=== PATIENT | female | born 1940 | race Caucasian/White ===

== ENCOUNTER 2020-02-05 14:44 | Emergency (ER) | payer MEDICARE, OTHER ==
[~2020-02-05] VITALS: Ht 175.3 cm; Wt 136.1 kg
[~2020-02-05 14:44] MED LIST: ASPIRIN81 MG PEG; BIOTIN300 MCG PO; CALCIUM 500+D1 EACH PO; LASIX20 MG PO; LEVAQUIN500 MG PO; MOBIC15 MG PO; MULTI-VITAMIN1 EACH PO; NIACIN500 M2 PO; PLETAL100 MG PO
[2020-02-05] MEDS ORDERED: ONDANSETRON HCL INJ 2MG/ML 2ML 2 MG/ML VIAL IV STA (15:13)
[2020-02-05] MEDS ORDERED: MORPHINE SULFATE 2 MG/ML SYR 1ML IV STA (15:13)
[2020-02-05] MEDS ORDERED: PANTOPRAZOLE 40 MG 10ML VIAL IV STA (15:13)
[2020-02-05] MEDS ORDERED: SODIUM CHLORIDE 0.9% 1000ML 1,000 ML IV STA (15:13)
[2020-02-05] MEDS ORDERED: MORPHINE SULFATE INJ 4 MG/ML INJ 1ML ONE (15:20)
[2020-02-05] MEDS ORDERED: SODIUM CHLORIDE 0.9% 1000ML 1,000 ML ONE (15:21)
[2020-02-05] MEDS ORDERED: ONDANSETRON HCL INJ 2MG/ML 2ML 2 MG/ML VIAL ONE (15:21)
[2020-02-05] MEDS ORDERED: HYDROMORPHONE 1MG/1ML INJ IV ONE (15:30)
[2020-02-05 15:35] LABS: BASOPHILS % 0.2 % (0.0-1.0); HEMATOCRIT 35.3 % (34.2-44.1); HEMOGLOBIN 11.7 g/dL (12.0-16.0); LYMPHOCYTES # (AUTO) 0.9 (1.0-3.2); LYMPHOCYTES % 8.3 % (18.0-39.1); MEAN CORPUSCULAR HEMOGLOBIN 28.5 pg (28-32); MEAN CORPUSCULAR HGB CONC 33.1 g/dL (31-35); MEAN CORPUSCULAR VOLUME 86.1 fL (81-99); MONOCYTES # (AUTO) 0.7 (0.2-0.8); MONOCYTES % 6.1 % (4.4-11.3); NEUTROPHILS # (AUTO) 9.7 (2.1-6.9); PLATELET COUNT 199 x10e3/uL (140-360); RED CELL DISTRIBUTION WIDTH 15.4 % (11.7-14.4)
[2020-02-05] MEDS ORDERED: HYDROMORPHONE 2MG/ML 2 MG/ML ML ONE (15:38)
[2020-02-05 15:46] LABS: INR 1.04; PROTHROMBIN TIME 14.1 seconds (11.9-14.5)
[2020-02-05 15:47] LABS: PARTIAL THROMBOPLASTIN TIME 42.9 seconds (23.8-35.5)
[2020-02-05 15:59] LABS: ALBUMIN 3.7 g/dL (3.5-5.0); ANION GAP 18.2 mmol/L (8-16); CALCIUM 9.3 mg/dL (8.4-10.2); CREATININE, SERUM 1.4 mg/dL (0.57-1.11); MAGNESIUM 1.9 MG/DL (1.3-2.1); POTASSIUM 4.2 mmol/L (3.5-5.1)
[2020-02-05] MEDS ORDERED: LORAZEPAM INJ 2 MG/ML VIAL IV ONE (16:00)
[2020-02-05] MEDS ORDERED: LORAZEPAM INJ 2 MG/ML VIAL ONE (16:04)
[2020-02-05 16:07] LABS: CREATINE KINASE MB 0.9 ng/mL (0-5.0)
[2020-02-05 16:18] LABS: BILIRUBIN,URINE SMALL (NEGATIVE); CLARITY,URINE SL CLOUDY (CLEAR); COLOR,URINE STRAW (YELLOW); KETONES,URINE NEGATIVE (NEGATIVE); LEUKOCYTE ESTERASE ,URINE NEGATIVE (NEGATIVE); NITRITE,URINE NEGATIVE (NEGATIVE); PROTEIN,URINE DIPSTICK NEGATIVE (NEGATIVE); URINE UROBILINOGEN 0.2 mg/dL (0.2 - 1)
--- NOTE | 2020-02-05 16:24 | Diagnostic Imaging Report ---
EXAMINATION: CHEST SINGLE (PORTABLE) INDICATION: Abdominal pain COMPARISON: None FINDINGS: LINES/TUBES:None LUNGS:The lungs are well-inflated. There is perihilar fullness and indistinctness of the pulmonary vasculature. No focal consolidation PLEURA:No pleural effusion or pneumothorax. MEDIASTINUM:The cardiomediastinal silhouette appears normal in size and shape. BONES/SOFT TISSUES:No acute osseous injury. ABDOMEN:No free air under the diaphragm. IMPRESSION: Mild pulmonary interstitial edema. Signed by: Jere Rush MD on 02/05/2020 4:20 PM
[2020-02-05 16:31] LABS: BACTERIA,URINE MODERATE /HPF; EPITHELIAL CELLS,URINE FEW /LPF
--- NOTE | 2020-02-05 16:54 | Diagnostic Imaging Report ---
EXAM: CT Abdomen and Pelvis WITHOUT intravenous contrast INDICATION: Left flank pain, suprapubic pain COMPARISON: None. TECHNIQUE: Abdomen and pelvis were scanned utilizing a multidetector helical scanner from the lung base to the pubic symphysis without administration of IV contrast. Coronal and sagittal reformations were obtained. IV CONTRAST: None ORAL CONTRAST: Water COMPLICATIONS: None RADIATION DOSE: Total DLP: 776 mGy*cm Dose modulation, iterative reconstruction, and/or weight based adjustment of the mA/kV was utilized to reduce the radiation dose to as low as reasonably achievable. FINDINGS: LOWER THORAX: Normal. HEPATOBILIARY: 2.2 cm segment 6 right hepatic cyst. No other focal liver lesions. Cholelithiasis without CT evidence of cholecystitis. SPLEEN: No splenomegaly. PANCREAS: No focal masses or ductal dilatation. ADRENALS: No adrenal nodules. KIDNEYS/URETERS: 3 mm right upper pole nonobstructive renal calculus. No hydronephrosis or solid mass lesion. PELVIC ORGANS/BLADDER: Null catheter in place. Pessary device in place. PERITONEUM / RETROPERITONEUM: No free air or fluid. LYMPH NODES: No lymphadenopathy. VESSELS: Moderate atherosclerotic calcifications of the nonaneurysmal abdominal aorta and major branches. GI TRACT: No abnormal bowel thickening. No bowel obstruction. Normal appendix. BONES AND SOFT TISSUES: No acute osseous injury. No suspicious lytic or blastic lesions. Degenerative changes of the visualized spine. IMPRESSION: 3 mm right upper pole nonobstructive renal calculus. No hydronephrosis or solid mass lesion. No left renal calculi. Cholelithiasis without sonographic evidence of cholecystitis. Signed by: Jere Rush MD on 02/05/2020 4:51 PM
--- NOTE | 2020-02-05 17:15 | NUR ---
Noted iv infiltrated, iv d/c'd immediately. rt forearm wrapped and warm compress placed. +radial pulse and cap refill < 2 seconds. Md notified. arm elevated.
--- NOTE | 2020-02-05 17:25 | Emergency Department Note ---
History of Present Illnes History of Present Illness Chief Complaint: Genitourinary History of Present Illness This is a 79 year old female PATIENT IN FROM HOME WITH COMPLAINTS OF LEFT FLANK PAIN AND BURNING WITH URINATION X 4 DAYS; STATES SHE HAS A PESSARY, BUT HAS NOT HAD TAKEN OUT IN OVER A YEAR. PATIENT ALERT AND ORIENTED, RESP EVEN AND NONLABORED, RATES PAIN 9/10. PATIENT APPEARS IN NO DISTRESS. Historian: Patient, Family Member Arrival Mode: Car Mental Health Nurse Required: No Onset (how long ago): day(s) (4) Location: LEFT FLANK/ABDOMEN Quality: PAIN Radiation: Reports non-radiation Severity: severe Onset quality: gradual Timing of current episode: constant Progression: worsening Chronicity: new Context: Denies recent illness Relieving factors: none Exacerbating factors: none Associated symptoms: Reports denies other symptoms Past Medical/Family History Physician Review I have reviewed the patient's past medical and family history. Any updates have been documented here. Past Medical History Recent Fever: No Clinical Suspicion of Infectio: Yes New/Unexplained Change in Ment: No Past Medical History: UTI's Other Medical History: PAD L LEG BLADDER PROLAPSE, UTI'S Other Surgery: TOENAILS REMOVED X3 CYSTOSCOPY Social History Smoking Cessation: Unknown if ever smoked Counseling Performed: No Alcohol Use: None Any Illegal Drug Use: No Physically hurt or threatened: No Family History Family history of heart diseas: No Other Any Pre-Existing Lines (PICC,: No Review of Systems Review of Systems Constitutional: Reports no symptoms EENTM: Reports no symptoms Cardiovascular: Reports no symptoms Respiratory: Reports no symptoms Gastrointestinal: Reports as per HPI Genitourinary: Reports no symptoms Musculoskeletal: Reports no symptoms Integumentary: Reports no symptoms Neurological: Reports no symptoms Psychological: Reports no symptoms Endocrine: Reports no symptoms Hematological/Lymphatic: Reports no symptoms Physical Exam Related Data Allergies: Coded Allergies: levofloxacin (Verified Allergy, Intermediate, hives, 11/09/16) tetanus and diphtheria toxoids (Verified Allergy, Unknown, 11/06/16) Triage Vital Signs Vital Signs Date Time Temp Pulse Resp B/P (MAP) Pulse Ox O2 Delivery O2 Flow Rate FiO2 02/05/20 14:47 97.8 95 20 117/70 98 Room Air 02/05/20 16:12 3.0 Vital signs reviewed: Yes Physical Exam CONSTITUTIONAL Constitutional: Present well-developed, Present well-nourished, Present other (ANXIOUS, UNCOOPERATIVE) HENT HENT: Present normocephalic, Present atraumatic, Present oropharynx clear/moist, Present nose normal HENT L/R: Present left ext ear normal, Present right ext ear normal EYES Eyes: Reports PERRL, Reports conjunctivae normal NECK Neck: Present ROM normal PULMONARY Pulmonary: Present effort normal, Present breath sounds normal CARDIOVASCULAR Cardiovascular: Present regular rhythm, Present heart sounds normal, Present capillary refill normal, Present normal rate GASTROINTESTINAL Abdominal: Present soft, Present bowel sounds normal, Present tender (MOD DIFFUSE TENDERNESS WITHOUT R/G); Absent guarding, Absent rebound, Absent left CVA tenderness, Absent right CVA tenderness GENITOURINARY Genitourinary: Present exam deferred SKIN Skin: Present warm, Present dry MUSCULOSKELETAL Musculoskeletal: Present ROM normal NEUROLOGICAL Neurological: Present alert, Present oriented x 3, Present no gross motor or sensory deficits PSYCHOLOGICAL Psychological: Present mood/affect normal, Present judgement normal Results Laboratory Result Diagram: 02/05/20 1500 02/05/20 1500 Laboratory Laboratory Tests Test 02/05/20 16:00 02/05/20 15:00 Urine Color Straw (YELLOW) Urine Clarity Sl cloudy (CLEAR) Urine pH 5.5 (5 - 7) Urine Specific [place] 1.020 (1.010-1.025) Urine Protein Negative (NEGATIVE) Urine Glucose (UA) Negative (NEGATIVE) Urine Ketones Negative (NEGATIVE) Urine Blood Negative (NEGATIVE) Urine Nitrite Negative (NEGATIVE) Urine Bilirubin Small (NEGATIVE) Urine Urobilinogen 0.2 mg/dL (0.2 - 1) Urine Leukocyte Esterase Negative (NEGATIVE) Urine RBC None /HPF (0-5) Urine WBC None /HPF (0-5) Urine Epithelial Cells Few /LPF (NONE) Urine Bacteria Moderate /HPF (NONE) Urine Hyaline Casts 2-5 (0-1) White Blood Count 11.35 x10e3/uL (4.8-10.8) Red Blood Count 4.10 x10e6/uL (3.6-5.1) Hemoglobin 11.7 g/dL (12.0-16.0) Hematocrit 35.3 % (34.2-44.1) Mean Corpuscular Volume 86.1 fL (81-99) Mean Corpuscular Hemoglobin 28.5 pg (28-32) Mean Corpuscular Hemoglobin Concent 33.1 g/dL (31-35) Red Cell Distribution Width 15.4 % (11.7-14.4) Platelet Count 199 x10e3/uL (140-360) Neutrophils (%) (Auto) 85.0 % (38.7-80.0) Lymphocytes (%) (Auto) 8.3 % (18.0-39.1) Monocytes (%) (Auto) 6.1 % (4.4-11.3) Eosinophils (%) (Auto) 0.0 % (0.0-6.0) Basophils (%) (Auto) 0.2 % (0.0-1.0) Neutrophils # (Auto) 9.7 (2.1-6.9) Lymphocytes # (Auto) 0.9 (1.0-3.2) Monocytes # (Auto) 0.7 (0.2-0.8) Eosinophils # (Auto) 0.0 (0.0-0.4) Basophils # (Auto) 0.0 (0.0-0.1) Absolute Immature Granulocyte (auto 0.05 x10e3/uL (0-0.1) Prothrombin Time 14.1 seconds (11.9-14.5) Prothromb Time International Ratio 1.04 Activated Partial Thromboplast Time 42.9 seconds (23.8-35.5) Sodium Level 132 mmol/L (136-145) Potassium Level 4.2 mmol/L (3.5-5.1) Chloride Level 101 mmol/L (98-107) Carbon Dioxide Level 17 mmol/L (22-29) Anion Gap 18.2 mmol/L (8-16) Blood Urea Nitrogen 16 mg/dL (7-26) Creatinine 1.40 mg/dL (0.57-1.11) Estimat Glomerular Filtration Rate 36 ML/MIN (60-) BUN/Creatinine Ratio 11 (6-25) Glucose Level 108 mg/dL (74-118) Calcium Level 9.3 mg/dL (8.4-10.2) Magnesium Level 1.9 MG/DL (1.3-2.1) Total Bilirubin 1.2 mg/dL (0.2-1.2) Aspartate Amino Transf (AST/SGOT) 30 IU/L (5-34) Alanine Aminotransferase (ALT/SGPT) 24 IU/L (0-55) Alkaline Phosphatase 110 IU/L (40-150) Creatine Kinase 58 IU/L (29-168) Creatine Kinase MB 0.90 ng/mL (0-5.0) Troponin I 0.042 ng/mL (0-0.300) B-Type Natriuretic Peptide 158.0 pg/mL (0-100) Total Protein 7.4 g/dL (6.5-8.1) Albumin 3.7 g/dL (3.5-5.0) Globulin 3.7 g/dL (2.3-3.5) Albumin/Globulin Ratio 1.0 (0.8-2.0) Amylase Level 63 U/L (25-125) Lipase 27 U/L (8-78) Lab results reviewed: Yes Imaging Imaging results reviewed: Yes Procedures 12 Lead ECG Interpretation ECG Interpretation : ECG: ECG 1 Mental Health Nurse: Interpreted by ED physician Date: Feb 05, 2020 Time: 15:21 Rhythm: sinus rhythm Conduction: right bundle branch block (AND LAFB) ST segments normal: Yes T wave inversion: V1, V2, V3 T waves flattening: III Clinical Impression: abnormal ECG Assessment & Plan Medical Decision Making MDM CBC, CHEM, ZACH/LIP, ECG, CARDIACS, BNP, UA/CX, CXR, CT ABD/PELVIS - EVAL FOR KIDNEY STONE, RENAL INSUFF, PANCREATITIS, DIVERTICULITIS, STEMI/NSTEMI, ELECTROLYTE ABNL Reassessment Reassessment PT GOT TO CT AND REFUSED TO LAY DOWN - I GAVE MORE PAIN MEDS AND 1 MG ATIVAN TO FACILITATE WORKUP DC HOME WHEN PATIENT WAKES UP, F/U WITH PCP AND SCRIPT SUPERVISOR , RAY/EMETERIO Assessment & Plan Final Impression: (1) Abdominal pain Depart Disposition: HOME, SELF-CARE Last Vital Signs Date Time Temp Pulse Resp B/P (MAP) Pulse Ox O2 Delivery O2 Flow Rate FiO2 02/05/20 16:12 80 16 139/84 100 Nasal Cannula 3.0 02/05/20 14:47 97.8 Home Meds Reported Medications Levofloxacin (LEVAQUIN) 500 Mg Tablet, 500 MG PO DAILY, #10 TAB 11/09/16 Cilostazol (PLETAL) 100 Mg Tablet, 100 MG PO BID 11/06/16 Meloxicam (MOBIC) 15 Mg Tablet, 7.5 MG PO BID 11/06/16 Furosemide (LASIX) 20 Mg Tablet, 20 MG PO DAILY, #30 TAB 11/06/16 Aspirin (ASPIRIN) 81 Mg Tab.chew, 81 MG PEG DAILY 11/06/16 Multivitamin (MULTI-VITAMIN DAILY) 1 Each Tablet, 1 TAB PO DAILY 11/06/16 Calcium Carbonate/Vitamin D3 (CALCIUM 500+D TABLET CHEW) 1 Each Tab.chew, 2 TAB PO DAILY 11/06/16 Biotin (BIOTIN) 300 Mcg Tablet, 500 MG PO DAILY 11/06/16 Niacin (NIACIN) 500 Mg Tabsr, 500 MG PO DAILY, #30 TAB 11/06/16 Medications in the ED Morphine Sulfate 4 mg STK-MED ONCE .ROUTE ; Start 02/05/20 at 15:20; Stop 02/05/20 at 15:14; Status DC Ondansetron HCl 4 mg STK-MED ONCE .ROUTE ; Start 02/05/20 at 15:21; Stop 02/05/20 at 15:14; Status DC Sodium Chloride 1,000 ml @ ud STK-MED ONCE .ROUTE ; Start 02/05/20 at 15:21; Stop 02/05/20 at 15:15; Status DC Pantoprazole Sodium 40 mg ONCE STAT IV Last administered on 02/05/20at 16:11; Admin Dose 40 MG; Start 02/05/20 at 15:13; Stop 02/05/20 at 15:35; Status DC Morphine Sulfate 4 mg ONCE STAT IV Last administered on 02/05/20at 15:18; Admin Dose 4 MG; Start 02/05/20 at 15:13; Stop 02/05/20 at 15:34; Status DC Ondansetron HCl 4 mg ONCE STAT IV Last administered on 02/05/20at 15:18; Admin Dose 4 MG; Start 02/05/20 at 15:13; Stop 02/05/20 at 15:34; Status DC Sodium Chloride 1,000 ml @ 0 mls/hr Q0M STAT IV Last administered on 02/05/20at 15:18; Admin Dose 1,000 MLS/HR; Start 02/05/20 at 15:13; Stop 02/05/20 at 15:16; Status DC Hydromorphone HCl 0.5 mg ONCE ONCE IV Last administered on 02/05/20at 15:46; Admin Dose 0.5 MG; Start 02/05/20 at 15:30; Stop 02/05/20 at 15:34; Status DC Hydromorphone HCl 2 mg STK-MED ONCE .ROUTE ; Start 02/05/20 at 15:38; Stop 02/05/20 at 15:32; Status DC Lorazepam 1 mg ONCE ONCE IV Last administered on 02/05/20at 16:10; Admin Dose 1 MG; Start 02/05/20 at 16:00; Stop 02/05/20 at 16:01; Status DC Lorazepam 2 mg STK-MED ONCE .ROUTE ; Start 02/05/20 at 16:04; Stop 02/05/20 at 15:57; Status DC ARACELIS HARO MD Feb 05, 2020 17:25
--- NOTE | 2020-02-05 18:20 | NUR ---
Pt does wake fairly easy; however, pt some what confused and babbling. VSS. rechecked rt forearm wrapped with alex wrap. Remains elevated and with warm compress. Pt remains of monitors and nc 3 lpm until more awake to d/c home. charge nurse notified daughter of all updates.
--- NOTE | 2020-02-05 18:59 | NUR ---
Pt soundly asleep, snoring lying comfortably on bed attached to front desk monitor with VSS. For D/C to awaiting daughter's picking belt operator for transport to home.
[2020-02-05 20:05] VITALS: BP 104/58
--- NOTE | 2020-02-05 20:14 | NUR ---
Patient woke up, family called at bedside.
--- NOTE | 2020-02-05 20:24 | NUR ---
Pt placed on the wheelchair wheeled to her vehicle. Pt was able to stand & transfer with slow steady gait. No further complaint made at this time.
== END 2020-02-05 20:32 | disposition home or self-care (01) ==
LOC: ER 15:00
DX: M54.5 Low back pain (principal); R30.0 Dysuria; R10.30 Lower abdominal pain, unspecified; N20.0 Calculus of kidney; K80.20 Calculus of gallbladder without cholecystitis without obstruction; K76.89 Other specified diseases of liver
CPT/HCPCS: 36415; 71045; 74176; 80053; 81001; 82150; 82550; 82553; 83690; 83735; 83880; 84484; 85025; 85610; 85730; 87086; 93005; 99284; J1170; J2060; J2270; J2405; J7030

== ENCOUNTER → 2021-03-25 | Outpatient (CLI) | payer MEDICARE, OTHER ==
[~2021-03-25] VITALS: Ht 175.3 cm; Wt 102.1 kg
[~2021-03-25] MED LIST changes: -ASPIRIN81 MG PEG; +ASPIRIN81 MG PO; +CALTRATE 600 +1 EAC1 PO; +ELLURA200 MG PO; +FIBER CHOICE PO; +MAGNESIUM OXID400 MG PO; +MELATONIN3 MG PO; +MYRBETRIQ25 MG PO; +NEURONTIN300 MG PO; +POTASSIUM CHLO10 ME1 PO; +PROVENTIL HFA6.7 GM INH
[2021-03-25 07:50] VITALS: BP 116/73
[2021-03-25 07:50] LABS: BASOPHILS % 0.4 % (0.0-1.0); EOSINOPHILS # (AUTO) 0.3 (0.0-0.4); EOSINOPHILS % 4.1 % (0.0-6.0); HEMATOCRIT 38.4 % (34.2-44.1); HEMOGLOBIN 12.2 g/dL (12.0-16.0); LYMPHOCYTES # (AUTO) 1.8 (1.0-3.2); MEAN CORPUSCULAR HGB CONC 31.8 g/dL (31-35); MEAN CORPUSCULAR VOLUME 94.6 fL (81-99); MONOCYTES # (AUTO) 0.5 (0.2-0.8); MONOCYTES % 7.9 % (4.4-11.3); NEUTROPHILS # (AUTO) 4.1 (2.1-6.9); NEUTROPHILS % 60.3 % (38.7-80.0); PLATELET COUNT 182 x10e3/uL (140-360); RED BLOOD COUNT 4.06 x10e6/uL (3.6-5.1); RED CELL DISTRIBUTION WIDTH 15.9 % (11.7-14.4)
[2021-03-25 08:08] LABS: INR 0.91
[2021-03-25 08:17] LABS: ALBUMIN 3.7 g/dL (3.5-5.0); ANION GAP 13.1 mmol/L (8-16); CALCIUM 8.6 mg/dL (8.4-10.2); CREATININE, SERUM 1.26 mg/dL (0.57-1.11); POTASSIUM 4.1 mmol/L (3.5-5.1)
== END | disposition home or self-care (01) ==
LOC: LAB 03-20 12:08 → CATH LAB 07:18 → EDSTATUS 09:00 → LAB 12:08
PROVIDERS: ATTEND Internal Medicine
DX: I25.10 Atherosclerotic heart disease of native coronary artery without angina pectoris (principal); I73.9 Peripheral vascular disease, unspecified; Z53.20 Procedure and treatment not carried out because of patient's decision for unspecified reasons; Z01.812 Encounter for preprocedural laboratory examination; Z20.822 Contact with and (suspected) exposure to COVID-19
CPT/HCPCS: 36415; 80053; 85025; 85610; U0002

== ENCOUNTER → 2021-03-30 | Outpatient (CLI) | payer MEDICARE, OTHER ==
[~2021-03-30] VITALS: Ht 175.3 cm; Wt 102.1 kg
[2021-04-01 10:30] VITALS: BP 105/77
== END | disposition home or self-care (01) ==
LOC: LAB 12:06 → CATH LAB 04-01 10:18 → EDSTATUS 04-01 12:00
PROVIDERS: ATTEND Internal Medicine
DX: I25.10 Atherosclerotic heart disease of native coronary artery without angina pectoris (principal); I73.9 Peripheral vascular disease, unspecified; Z01.812 Encounter for preprocedural laboratory examination; Z20.822 Contact with and (suspected) exposure to COVID-19; Z53.29 Procedure and treatment not carried out because of patient's decision for other reasons
CPT/HCPCS: U0002

== ENCOUNTER → 2021-04-06 | Outpatient (CLI) | payer MEDICARE, OTHER ==
[2021-04-03 09:52] LABS: BASOPHILS % 0.5 % (0.0-1.0); EOSINOPHILS # (AUTO) 0.3 (0.0-0.4); EOSINOPHILS % 4.6 % (0.0-6.0); LYMPHOCYTES # (AUTO) 1.4 (1.0-3.2); LYMPHOCYTES % 23.9 % (18.0-39.1); MEAN CORPUSCULAR HEMOGLOBIN 29.3 pg (28-32); MEAN CORPUSCULAR HGB CONC 31.4 g/dL (31-35); MEAN CORPUSCULAR VOLUME 93.1 fL (81-99); MONOCYTES # (AUTO) 0.5 (0.2-0.8); MONOCYTES % 8.1 % (4.4-11.3); NEUTROPHILS # (AUTO) 3.6 (2.1-6.9); NEUTROPHILS % 62.7 % (38.7-80.0); PLATELET COUNT 210 x10e3/uL (140-360); RED BLOOD COUNT 3.76 x10e6/uL (3.6-5.1); RED CELL DISTRIBUTION WIDTH 15.8 % (11.7-14.4)
[2021-04-03 10:37] LABS: INR 0.96; PROTHROMBIN TIME 13.5 seconds (11.9-14.5)
[2021-04-03 10:38] LABS: ALBUMIN/GLOBULIN RATIO 0.8 (0.8-2.0); ANION GAP 14.3 mmol/L (8-16); CALCIUM 8.7 mg/dL (8.4-10.2); CREATININE, SERUM 1.28 mg/dL (0.57-1.11); POTASSIUM 4.3 mmol/L (3.5-5.1)
[~2021-04-06] VITALS: Ht 175.3 cm; Wt 99.8 kg
[~2021-04-06] MED LIST changes: +HEPARIN SOD (PORCINE) 1000 UNIT/ML 30ML ONE; +HEPARIN SOD/SOD CHLORIDE 1,000 ML ONE; +IOPAMIDOL 300MG/ML 100 ML INFUS..BTL IV ONE; +IOPAMIDOL 370 MG/ML 200 ML INFUS..BTL INJ ONE; +LIDOCAINE HCL 2% LOCAL 20 ML VIAL ONE; +NITROGLYCERIN/D5W 200 MCG/ML 0 ML ONE; +SODIUM CHLORIDE 0.9% 1000ML 1,000 ML ONE
[2021-04-06 07:15] VITALS: BP 130/79
== END ==
LOC: LAB 04-03 09:36 → OR 07:10 → EDSTATUS 08:30 → LAB 09:38
PROVIDERS: ATTEND Internal Medicine
DX: I25.10 Atherosclerotic heart disease of native coronary artery without angina pectoris (principal); I73.9 Peripheral vascular disease, unspecified; Z01.812 Encounter for preprocedural laboratory examination; Z20.822 Contact with and (suspected) exposure to COVID-19; Z53.20 Procedure and treatment not carried out because of patient's decision for unspecified reasons
CPT/HCPCS: 36415; 80053; 85025; 85610; J2001; J7030; Q9967; U0002; J1644